=== PATIENT | male | born 1985 | race Caucasian/White ===

== ENCOUNTER 2018-06-19 16:37 | Inpatient (IN) | payer SELFPAY ==
--- NOTE | 2018-06-19 19:40 | RAD ---
RIGHT FOOT RADIOGRAPHS THREE VIEWS: 06/19/2018 PROVIDED CLINICAL HISTORY: Right foot pain, status post injury. FINDINGS: There is a comminuted, intraarticular fracture at the base of the second metatarsal. The third metat arsal appears laterally displaced with respect to the middle cuneiform. There is a small, ossific fr agment adjacent to the base of the third metatarsal, for which the donor site could be the second or third metatarsal. The fourth and fifth TMT and first TMT joints appear normally aligned. No additio nal fracture is evident. IMPRESSION: Lisfranc fracture dislocation. POS: [facility]
[2018-06-19] MEDS ORDERED: Morphine 4 MG/ML VIAL ONE (20:06)
[2018-06-19 20:51] LABS: #Eosinphils 0.6 thou/uL (0.0-0.7); #Lymphocytes 2.2 thou/uL (1.20-3.40); #Neutrophils 6.4 thou/uL (1.40-6.50); %Basophils 0.4 % (0.0-1.0); %Eosinophils 5.5 % (0.0-10.0); %Lymphocytes 21.5 % (21.0-51.0); %Monocytes 9.9 % (0.0-10.0); %Neutrophils 62.7 % (42.0-75.0); Hemoglobin 11.3 g/dL (14.0-18.0); Mean Corpuscular HGB CONC 32.4 g/dL (32.0-36.0); Mean Corpuscular Hemoglobin 24.8 pg (27.0-31.0); Mean Corpuscular Volume 76.6 fL (78.0-98.0); Mean Platelet Volume 9.5 fL (7.4-10.4); Platelet Count 281 thou/uL (130-400); RBC Distribution Width 14.5 % (11.5-14.5); Red Blood Cell (RBC) Count 4.57 mill/uL (4.70-6.10); White Blood Cell (WBC) Count 10.2 thou/uL (4.8-10.8)
[2018-06-19 21:00] LABS: PTT 30.1 SEC (22.9-36.1); Prothrombin Time 13.6 SEC (12.0-14.7)
--- NOTE | 2018-06-19 21:08 | RAD ---
PORTABLE CHEST: 06/19/2018 PROVIDED CLINICAL HISTORY: Preop. FINDINGS: Cardiac and mediastinal silhouette are within normal limits. Lungs appear clear. No pleural fluid o r pneumothorax apparent. IMPRESSION: No evidence for an acute cardiopulmonary process. POS: [facility]
[2018-06-19 21:12] LABS: ALT (SGPT) 38 U/L (8-55); AST (SGOT) 27 U/L (5-34); Albumin 4.4 g/dL (3.5-5.0); Alkaline Phosphatase 71 U/L (40-150); Anion Gap 11 mmol/L (10-20); BUN (Urea Nitrogen) 15 mg/dL (8.9-20.6); Bilirubin, Total 0.2 mg/dL (0.2-1.2); Calc. Creatinine Clearance 0 mL/min (70-130); Calcium 9.2 mg/dL (7.8-10.44); Carbon Dioxide 23 mmol/L (22-29); Chloride 109 mmol/L (98-107); Estimated GFR-MDRD Greater than 90; Globulin 2.9 g/dL (2.4-3.5); Glucose 88 mg/dL (70-105); Potassium 3.8 mmol/L (3.5-5.1); Protein, Total 7.3 g/dL (6.0-8.3); Sodium 139 mmol/L (136-145)
--- NOTE | 2018-06-19 21:31 | CT ---
CT RIGHT FOOT: 06/19/2018 PROVIDED CLINICAL HISTORY: Fracture. FINDINGS: There is a comminuted intraarticular fracture present at the base of the second metatarsal, without s ignificant intraarticular gap or intraarticular step-off. There is a fracture involving the medial b ase of the third metatarsal, which is intraarticular and associated with about 2 mm of gap and about 1 mm of step-off. This is comminuted and mildly distracted. The third metatarsal is displaced later ally, with respect to the lateral cuneiform. There is a comminuted fracture involving the anterior a spect of the cuboid at its lateral margin, with associated cortical impaction of about 4 mm. No anthony tional fracture is evident. Alignment appears otherwise anatomic. Joint spaces appear preserved. IMPRESSION: Lisfranc fracture dislocation, as above. POS: [facility]
--- NOTE | 2018-06-19 21:47 | HP ---
REQUESTING PHYSICIAN: Dr. Leger. ATTENDING SURGEON: Dr. Rodríguez. CONSULTATIONS: Orthopedics, Dr. Silverio. HISTORY OF PRESENT ILLNESS: The patient is a 32-year-old man, who was on a trampoline while intoxicated, attempted to do a flip, landed awkwardly on his right foot, had immediate pain and swelling, went into his house and remained there all day, was finally unable to control the pain, had a friend bring him to the emergency department where he underwent evaluation and examination and was noted to have a Lisfranc fracture dislocation of his right foot, which time he was evaluated by Orthopedics and they requested that we admit the patient with a plan to take him to the operating room for open reduction and internal fixation tomorrow morning. The patient denied any loss of consciousness or any syncopal type events. ALLERGIES: PENICILLIN. CURRENT MEDICATIONS: None. PAST MEDICAL HISTORY: None. PAST SURGERY HISTORY: None. 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 He smokes approximately half a pack of cigarettes per day. Uses marijuana occasionally and drinks alcohol 1 to 2 times a month. FAMILY MEDICAL HISTORY: Unknown. REVIEW OF SYSTEMS: A 10-point review of systems is negative except otherwise stated. PHYSICAL EXAMINATION: VITAL SIGNS: Blood pressure 128/74, pulse 86, respirations 18, oxygen saturation is 99% on room air, temperature is 98.6. GENERAL: The patient is resting comfortably in the ER bed. He is awake, alert, and oriented x3. Ruddy coma Scale is 15. HEENT: Head is normocephalic and atraumatic. Eyes; extraocular motion intact, PERRLA bilaterally. Ears are atraumatic without discharge. Nose, atraumatic without discharge. Oropharynx is clear. NECK: Nontender. Trachea is midline. No JVD. CHEST: Clear to auscultation with good inspiratory and expiratory effort. HEART: Regular rate and rhythm. ABDOMEN: Soft, flat, and nontender with active bowel sounds. PELVIS: Stable. EXTREMITIES: Neurovascularly intact x4. Right foot shows global swelling with cap refill still less than 3 seconds and gross sensation is intact. The patient at this time during my examination and the orthopedist examination showed no signs of compartment syndrome of the foot. LABORATORY FINDINGS: White blood cell count 10.2, hemoglobin 11.3, hematocrit 35.0, platelets 281. Sodium 139, potassium 3.8, chloride 109, CO2 23, BUN 15, creatinine 0.86, glucose 88. LFTs are unremarkable. PTT 30, PT 14, INR 1.0. RADIOGRAPHS: AP chest shows no acute cardiopulmonary process. Views of the right foot show Lisfranc fracture dislocation. CT of the right foot shows fractures of the base of the 2nd and 3rd metatarsal and the cuboid consistent with a fracture dislocation of the Lisfranc midfoot. ASSESSMENT: 1. Lisfranc fracture dislocation of right foot. 2. Pain secondary to trauma. PLAN: Plan will be to admit the patient to the surgical floor. We will make him n.p.o. after midnight. Postoperatively, he will work with Physical and Occupational Therapy. The evaluation, examination, laboratory and radiographic findings will be discussed with Dr. Connelly after this dictation. The patient was evaluated by Dr. Silverio in the emergency department. Job ID: [id number]
[2018-06-19] MEDS ORDERED: Ondansetron ODT 4 MG TAB SL PRN (22:18)
[2018-06-19] MEDS ORDERED: D5 1/2 NS w/20 mEq KCL 1,000 ML IV SCH (22:18)
[2018-06-19] MEDS ORDERED: Ondansetron PF 4 MG/2 ML Vial IVP PRN ×2 (22:18→22:29)
[2018-06-19] MEDS ORDERED: Morphine 10 MG/ML VIAL SLOW IVP PRN (22:19)
[2018-06-19] MEDS ORDERED: Morphine 4 MG/ML VIAL SLOW IVP PRN (22:29)
[2018-06-19] MEDS ORDERED: Dextrose 50% Abboject 50 ML SYRINGE SLOW IVP PRN (22:29)
[2018-06-19] MEDS ORDERED: Dextrose 5% in Water 1,000 ML IV PRN (22:29)
[2018-06-19] MEDS ORDERED: Ondansetron ODT 4 MG TAB PO PRN (22:29)
[2018-06-19] MEDS ORDERED: Famotidine 20 MG TAB PO SCH (22:45)
[2018-06-19] MEDS: Sodium Chloride 0.9% 1,000 ML IV SCH (22:58)
[2018-06-20] MEDS: Ketorolac Tromethamine 30 MG/ML VIAL IVP SCH ×4 (00:22→20:17)
[2018-06-20] MEDS: Acetaminophen 1,000 MG in Premix Bag 1 BAG IVPB SCH ×5 (00:24→20:38)
[2018-06-20] MEDS: Morphine 2 MG/ML SYRINGE SLOW IVP PRN ×4 (02:46→22:28)
[2018-06-20 07:27] LABS: #Eosinphils 0.5 thou/uL (0.0-0.7); #Lymphocytes 2.4 thou/uL (1.20-3.40); #Monocytes 0.9 thou/uL (0.11-0.59); #Neutrophils 3.2 thou/uL (1.40-6.50); %Basophils 0.6 % (0.0-1.0); %Eosinophils 7.3 % (0.0-10.0); %Lymphocytes 34.3 % (21.0-51.0); %Monocytes 12.5 % (0.0-10.0); %Neutrophils 45.3 % (42.0-75.0); Mean Corpuscular HGB CONC 31.3 g/dL (32.0-36.0); Mean Corpuscular Volume 76.7 fL (78.0-98.0); Mean Platelet Volume 9.3 fL (7.4-10.4); Platelet Count 224 thou/uL (130-400); RBC Distribution Width 14.4 % (11.5-14.5); Red Blood Cell (RBC) Count 4.17 mill/uL (4.70-6.10)
[2018-06-20 07:48] LABS: Anion Gap 8 mmol/L (10-20); BUN (Urea Nitrogen) 17 mg/dL (8.9-20.6); Calc. Creatinine Clearance 224 mL/min (70-130); Calcium 9.1 mg/dL (7.8-10.44); Carbon Dioxide 26 mmol/L (22-29); Chloride 111 mmol/L (98-107); Estimated GFR-MDRD Greater than 90; Glucose 94 mg/dL (70-105); Potassium 3.9 mmol/L (3.5-5.1); Sodium 141 mmol/L (136-145)
--- NOTE | 2018-06-20 08:23 | CON ---
DATE OF CONSULTATION: 06/19/2018 ORTHOPEDIC CONSULTATION: BRIEF HISTORY OF PRESENT ILLNESS: The patient is a 32-year-old gentleman who was examined in the emergency room at [facility]. He reports that on the day of injury, he was jumping on a trampoline while intoxicated and landed awkwardly on the right foot. He reports immediate pain and swelling. He stayed at home for the balance of the day and finally due to increasing pain, presented to the emergency room at [facility] where x-rays demonstrated a Lisfranc fracture dislocation of the right foot with a fracture of the base of the second metatarsal and lateral displacement of the shaft as well as what appears to be some mild lateral displacement of the third metatarsal as well. He was subsequently transferred to the ER in [facility] for orthopedic evaluation and admitted to the Trauma Service for further care. PAST MEDICAL HISTORY: Healthy. PAST SURGICAL HISTORY: Negative. MEDICATIONS: None. ALLERGIES: TO PENICILLIN. 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 He drinks alcohol, he reports 1 to 2 times a month, and does consume marijuana recreationally, and smokes half a pack of cigarettes per day. FAMILY HISTORY: Noncontributory. REVIEW OF SYSTEMS: No recent fevers, chills, or sweats. No chest pain or shortness of breath. Denies numbness or tingling in the lower extremities. PHYSICAL EXAMINATION: VITAL SIGNS: Temperature of 98.6, heart rate of 86, respiratory rate of 18, and blood pressure of 128/74. HEENT: Atraumatic, normocephalic. HEART: Shows regular rate and rhythm without murmur. LUNGS: Clear to auscultation bilaterally with good breath sounds. CHEST WALL: Nontender. ABDOMEN: Soft, flat, and nontender. PELVIS: Stable. EXTREMITIES: Remarkable for a right lower extremity with atraumatic hip and knee and ankle that has some mild swelling, but is nontender to palpation of medial and lateral malleoli. The foot which is remarkable for pain to palpation of the midfoot with some significant dorsal swelling. He does not have extreme pain with passive stretch. He has intact sensation to touch over the dorsal and plantar aspect of the foot. He has good capillary refill. LABORATORY DATA: White count of 10, hematocrit of 35, and platelets 281,000. His INR is 1.0. IMAGING STUDIES: X-rays; 3-view of the right foot shows the second metatarsal fracture with displacement as stated in the History of Present Illness. Followup CT scan shows some fractures of the base of the second and third metatarsals, consistent with this Lisfranc injury. ASSESSMENT: Status post trampoline injury with right Lisfranc fracture dislocation. PLAN: At this time, the patient does not show a clinical evidence for compartment syndrome. He will be splinted and admitted to the hospital with elevation and ice to the foot. The plan at this time is to proceed with an open reduction and internal fixation tomorrow in the operating room for stabilization of this injury and then discharged to home postoperatively. This evening, I discussed risks and benefits with the patient. Risks include, but are not limited to, bleeding, infection, nerve injury, arthritis, ongoing foot problems and pain, loss of limb or life. The patient appears to understand and thus wished to proceed. Consent will be obtained prior to surgery. Job ID: [id number]
[2018-06-20] MEDS ORDERED: Clindamycin/D5W 900 MG in Premix Bag 1 BAG IVPB SCH (09:00)
[2018-06-20] MEDS ORDERED: CEFAZOLIN/Water 2 GM/20 ML SYRINGE SLOW IVP SCH (09:00)
[2018-06-20] MEDS: Famotidine 20 MG TAB PO SCH ×2 (10:32→20:13)
[2018-06-20] MEDS: Sodium Chloride 0.9% 1,000 ML IV SCH (10:35)
[2018-06-20] MEDS ORDERED: Clindamycin/D5W 900 mg/50 ml Premix Bag ONE (14:04)
--- NOTE | 2018-06-20 14:16 | EKG ---
Test Reason : Blood Pressure : / mmHG Vent. Rate : 081 BPM Atrial Rate : 081 BPM P-R Int : 124 ms QRS Dur : 088 ms QT Int : 364 ms P-R-T Axes : 045 023 032 degrees QTc Int : 422 ms Normal sinus rhythm Normal ECG Confirmed by MATHEUS WATKINS, JORDEN ([id number]), market editor PENELOPE DUNAWAY ([id number]) on 06/20/2018 2:15:57 PM Referred By: Confirmed By:JORDEN JARVIS MD
--- NOTE | 2018-06-20 15:33 | PRG ---
DATE OF SERVICE: 06/20/2018 SUBJECTIVE: Mr. Olivarez has no complaints today. No shortness of breath. No chest pain. He is tolerating the diet without difficulty. OBJECTIVE: VITAL SIGNS: He is afebrile. Vital signs are stable. CHEST: Clear. HEART: Regular rate and rhythm. ABDOMEN: Soft, nontender. EXTREMITIES: His lower extremity is in the splint. ASSESSMENT: Lisfranc ankle fracture. PLAN: ORIF per Ortho. Trauma will follow. Job ID: [id number]
[2018-06-20] MEDS ORDERED: Fentanyl 100 MCG/2 ML VIAL ONE ×4 (15:46→18:20)
[2018-06-20] MEDS ORDERED: HYDROmorphone 2 MG/ML VIAL SLOW IVP PRN (16:44)
[2018-06-20] MEDS ORDERED: Promethazine HCl 25 MG/ML VIAL SLOW IVP PRN (16:44)
[2018-06-20] MEDS ORDERED: PACU-Morphine 4MG/ML VIAL SLOW IVP PRN (16:44)
[2018-06-20] MEDS ORDERED: Morphine Sulfate 2 MG/ML SYRINGE SLOW IVP PRN (16:44)
[2018-06-20] MEDS ORDERED: Ondansetron HCl/PF 4 MG/2 ML Vial IVP PRN (16:44)
[2018-06-20] MEDS ORDERED: Promethazine HCl 25 MG/ML VIAL IM PRN (16:44)
[2018-06-20] MEDS ORDERED: Meperidine HCl/PF 25 MG/ML VIAL SLOW IVP PRN (16:44)
[2018-06-20] MEDS: CEFAZOLIN 2 GM/50 ML BAG IVPB SCH (20:21)
[2018-06-20] MEDS ORDERED: Lidocaine 1% PF 5 ML VIAL ONE (21:26)
[2018-06-20] MEDS ORDERED: Dexamethasone 20 MG/5 ML VIAL ONE (21:26)
[2018-06-20] MEDS ORDERED: PROPOFOL 200 MG/20 ML VIAL ONE (21:26)
[2018-06-20] MEDS ORDERED: Ondansetron PF 4 MG/2 ML Vial ONE (21:26)
[2018-06-20] MEDS ORDERED: Ketorolac Tromethamine 30 MG/ML VIAL ONE (21:26)
[2018-06-21] MEDS: Ketorolac Tromethamine 30 MG/ML VIAL IVP SCH ×3 (00:09→06:26)
[2018-06-21] MEDS: Morphine 4 MG/ML VIAL SLOW IVP PRN ×2 (01:33→03:37)
[2018-06-21] MEDS ORDERED: HYDROcodone/Acetaminophen 10/325 mg Tablet PO PRN (01:57)
[2018-06-21] MEDS ORDERED: HYDROcodone/Acetaminophen 10/325 mg Tablet PO SCH (02:00)
[2018-06-21] MEDS: Acetaminophen 1,000 MG in Premix Bag 1 BAG IVPB SCH ×2 (02:43→08:29)
[2018-06-21] MEDS: CEFAZOLIN 2 GM/50 ML BAG IVPB SCH (04:48)
--- NOTE | 2018-06-21 08:25 | RAD ---
RIGHT FOOT RADIOGRAPH INTRAOPERATIVE: 06/20/2018 HISTORY: ORIF. COMPARISON: 06/20/2017 FINDINGS: Three cone-down intraoperative images of the midfoot/forefoot demonstrate screws overlying the base o f the first and second metatarsals, the middle and lateral cuneiform, and the base of the third metat arsal. Screw and plate fixation overly the base of the second metatarsal. IMPRESSION: Open reduction and internal fixation, as detailed above. POS: [facility]
[2018-06-21] MEDS: Famotidine 20 MG TAB PO SCH (08:29)
[2018-06-21 11:14] VITALS: BP 119/70; TEMP 98.3
--- NOTE | 2018-06-22 10:20 | DIS ---
DATE OF ADMISSION: 06/19/2018 DATE OF DISCHARGE: 06/21/2018 ADMITTING PHYSICIAN: Dr. Simba Rodríguez. DISCHARGING PHYSICIAN: Dr. Simba Rodríguez. CONSULTING PHYSICIAN: Dr. Dheeraj Silverio. ADMITTING DIAGNOSIS: Right Lisfranc fracture. DISCHARGE DIAGNOSES: 1. Right Lisfranc fracture. 2. Daily smoker. PROCEDURE PERFORMED: Open reduction and internal fixation of the right foot 06/20/[address] Silverio. MEDICATIONS: Home medications will be; 1. [place], prescription that was written in the chart. 2. Ibuprofen 800 mg q.6 p.r.n. pain. 3. Aspirin 81 mg b.i.d. FOLLOWUP: Followup will be with Dr. Silverio in [facility] in 2 weeks. HOSPITAL COURSE: Mr. Olivarez is a 32-year-old male, who presented to the emergency department after sustaining an injury to the right foot while on his trampoline. He was found to have a Lisfranc fracture. He was admitted to the Trauma Service, and orthopedics consultation was placed. Subsequently, the patient underwent ORIF of the right foot, tolerated the procedure well, worked with Orthopedics, back to his baseline, does not take any home medications. He is requesting discharge. He has worked with PT. He has a splint in place. Orthopedics have put in recommendations in the chart for discharge planning. They will follow him in clinic. I have seen the patient on the date of discharge. He is tolerating the diet. He was actually outside smoking and requesting discharge, he has no questions. Vital signs were remained stable and he will be discharged with followup with orthopedics. PHYSICAL EXAMINATION: VITAL SIGNS: Today, temperature is 98.2, blood pressure 102/61, heart rate is 58, respiratory rate is 16, and saturating 98% on room air. GENERAL: This is a 32-year-old male, sitting up, in no acute distress. HEENT: Normocephalic and atraumatic. NECK: Trachea is midline. No JVD is appreciated. RESPIRATORY: Equal rise and fall. No respiratory distress. CARDIOVASCULAR: Regular rate and rhythm. ABDOMEN: Soft. MUSCULOSKELETAL: Moves extremities. Has a splint applied to the right lower extremity. Good sensation noted. NEURO: Alert and oriented to person, place, time and event. SKIN: [place], warm, and dry. Again, the patient is being discharged to home. I have answered all questions and prescriptions in the chart. The patient was seen by Dr. Simba Rodríguez. Discussed the case with Orthopedics. Greater than 30 minutes was spent on discharge planning. Job ID: [id number] MTDD
--- NOTE | 2018-06-22 13:13 | OP ---
DATE OF PROCEDURE: 06/20/2018 PREOPERATIVE DIAGNOSIS: Right foot Lisfranc fracture dislocation with fractures of base of second and third metatarsal and compression fracture of cuboid. POSTOPERATIVE DIAGNOSIS: Right foot Lisfranc fracture dislocation with fractures of base of second and third metatarsal and compression fracture of cuboid. PROCEDURE: 1. Open reduction and internal fixation of right second metatarsal base fracture with plate stabilization, open reduction and internal fixation of right first tarsometatarsal joint with 3.5 mm screw. 2. Open reduction and internal fixation of right third tarsometatarsal joint with a 3.5 mm cortical screw. ANESTHESIA: General. RISK MGR: BILLY Galloway. TOURNIQUET TIME: 71 minutes at 300 mmHg. IMPLANTS: Synthes foot set with a small T-plate for the second metatarsal and 3.5 mm cortical screws for the first and third tarsometatarsal joints. COMPLICATIONS: None. DRAINS: None. SPECIMENS: None. OUTCOME: Near-anatomic alignment. INDICATIONS: The patient is a 32-year-old gentleman who was injured while jumping on a trampoline, landing awkwardly and sustaining trauma to the right foot. Preoperatively, x-rays as well as CT scan was obtained that showed disruption of the Lisfranc joint with a fracture of the base of the second metatarsal as well as fractures of the base of the third and a compression fracture of the cuboid, but without displacement of the fourth or fifth metatarsals. Although swollen, the foot was not tense and as such, the patient now taken to the operating room for stabilization. Informed consent has been obtained. I believe all questions answered. DESCRIPTION OF PROCEDURE: The patient was brought to the operating room and a time-out performed followed by induction of general anesthesia. Next, the patient was positioned supine on the OR table and a sterile prep and drape was performed of the right lower extremity. The knee was then flexed over a radiolucent triangle to allow for a foot that was laying flat on the OR table. Next, an incision was made between the first and second metatarsal shafts. After skin was sharply incised, dissection was carried down bluntly to expose the base of the second metatarsal and the Lisfranc joint. The Lisfranc ligament still was in place and intact; however, the second metatarsal was fractured just distal to the Lisfranc ligament providing the instability of the lateral rays. As such, this fracture was reduced under direct visualization and then a small T-plate from the Synthes foot set was positioned along the dorsal cortex of this fracture. Two screws could be secured in the base of the metatarsal and then 2 additional screws down along the shaft gaining alignment of the second metatarsal. At this point, it was felt that we needed to further stabilize the great toe and passed a screw in line with the Lisfranc ligament. This was done with a small stab wound along the medial aspect of the great toe metatarsal. A screw was then placed in standard fashion across the metatarsal crossing the Lisfranc ligament and inserting into the middle cuneiform. Next, a third incision was made between the third and fourth metatarsals. After skin sharply incised, dissection was carried down bluntly such that the metatarsal articulation with the lateral cuneiform could be visualized. This was reduced and then a screw was passed from the dorsal aspect of the metatarsal across the joint and into the lateral cuneiform. At this point, it was felt that the Lisfranc joint had been stabilized as was the third tarsometatarsal joint. As such, final C-arm images were obtained and then the wound was thoroughly irrigated. The wounds were then closed in layers with 2-0 Vicryl followed by nylon, Xeroform gauze, Webril, and a fiberglass splint was applied to the foot and then the tourniquet was let down with total time of 71 minutes. The patient was then transferred to recovery room in stable condition. There were no complications. He tolerated the procedure well. Job ID: [id number]
== END 2018-06-21 11:15 | disposition home or self-care (01) | DRG 505 ==
LOC: SCSER 16:37 → 3SE 19:43 → SURG A 06-20 12:45 → SURG B 06-20 19:31
PROVIDERS: ADMIT Surgery; ATTEND Surgery
PROC: 0QSL04Z Reposition Right Tarsal with Internal Fixation Device, Open Approach (ICD-10-PCS; principal; 2018-06-20)
PROC: 0QSN04Z Reposition Right Metatarsal with Internal Fixation Device, Open Approach (ICD-10-PCS; 2018-06-20)
DX: S92.321A Displaced fracture of second metatarsal bone, right foot, initial encounter for closed fracture (principal); S92.331A Displaced fracture of third metatarsal bone, right foot, initial encounter for closed fracture; S92.211A Displaced fracture of cuboid bone of right foot, initial encounter for closed fracture; S93.324A Dislocation of tarsometatarsal joint of right foot, initial encounter; F17.210 Nicotine dependence, cigarettes, uncomplicated; W17.89XA Other fall from one level to another, initial encounter; Y93.44 Activity, trampolining
CPT/HCPCS: 29515; 36415; 71045; 76000; 80048; 80053; 85025; 85610; 85730; 90471; 90686; 93005; 96361; 96374; C1713; G0008; G8978-GP-CJ; G8979-GP-CI; G8987-GO-CI; G8988-GO-CI; G8989-GO-CI; J0131; J1100; J1885; J2001; J2270; J2405; J2704; J3010; J3490